=== PATIENT | male | born 1975 | race Caucasian/White ===

== ENCOUNTER 2018-11-21 13:46 | Inpatient (IN) | payer OTHER, MEDICAID, SELFPAY ==
[2018-11-21 13:49] VITALS: BP 133/90; PULSE 75; RESP 14; TEMP 36.4; O2SAT 95; BMI 30.4
[2018-11-21 13:53] VITALS: BP 133/90; PULSE 80; RESP 17; O2SAT 96
--- NOTE | 2018-11-21 14:00 | MRI_ITS ---
STUDY: MRI LUMBAR SPINE WITHOUT CONTRAST REASON FOR EXAM: Male, 43 years old. Falls. Meniscus deep tendon reflexes. TECHNIQUE: Standardized fat and water weighted pulse sequences were obtained in the sagittal and axial planes. COMPARISON: None FINDINGS: Limited evaluation of the retroperitoneum and abdominal contents reveals no acute process. Normal appearance of the psoas and paraspinous muscles, upper medial pelvis and sacrum. No spinal canal stenosis. Normal features of the conus medullaris and cauda equina and epidural space. No significant scoliosis. Straightening of the expected lumbar lordosis. Next a normal vertebral body height and alignment. Normal disc intervals between L1 and S1. Mild disc degenerative changes at T11-T12, T12-L1 without associated stenosis. No significant facet arthropathy. MRI/Spine Lumbar (Routine) IMPRESSION: There is no significant lumbar spondylosis. No evidence of stenosis or nerve root impingement. Mild low thoracic disc degenerative changes without stenosis. Electronically Signed: Vish Oconnell MD at 17:28 EST Tel , Service support ,
--- NOTE | 2018-11-21 14:00 | MRI_ITS ---
STUDY: MRI THORACIC SPINE WITHOUT CONTRAST REASON FOR EXAM: Male, 43 years old. Diminished reflex bilateral extremities, weakness, muscle aches. TECHNIQUE: Multisequence multiplanar MRI of the thoracic spine was performed without IV contrast. COMPARISON: MRI lumbar spine same date. FINDINGS: No significant spondylosis is apparent in the cervical spine, limited evaluation. Mild thoracic scoliosis. There is a mild kyphosis of the midthoracic spine across the levels of T4-T6, associated with a mild chronic appearing wedge compression fracture of the superior endplate of T5, and associated with very slight superior endplate wedging and a superior endplate Schmorl's node at T6. There is mild reactive edema around the base of the Schmorl's node. Acute fracture is not suspected. There is only a minimal posterior disc bulge between T5 and T6 without associated stenosis. The remaining vertebral bodies are normal in height and all vertebral bodies are normal in alignment. Minimal disc degenerative features without stenosis are present at T4-T5, T5-T6, T11-T12 and T12-L1. The spinal canal is widely patent at all levels. There is no evidence of foraminal stenosis. Contents of thecal sac are normal in the epidural space appears normal. The thoracic spinal cord is normal in signal characteristics and morphology, no myelopathic features. No acute supraclavicular, intrathoracic or upper abdominal process is evident, in limited evaluation. MRI/Spine Thoracic (Routine) IMPRESSION: There is no evidence of myelopathy of the thoracic cord. There is no evidence of foraminal or spinal canal stenosis. Mild thoracic kyphosis is associated with chronic changes of the T5 and T6 vertebral bodies. Description above. There is otherwise only minimal disc degenerative disease as described above. Electronically Signed: Vish Oconnell MD at 16:52 EST Tel , Service support ,
[2018-11-21 14:43] LABS: International Normalized Ratio 0.9; Partial Thromboplast Time 28.4 Seconds (24.1-36.2); Prothrombin Time (Protime)PT. 12.2 SECONDS (11.7-14.9)
[2018-11-21 14:44] LABS: Absolute Lymphocyte Count 4.02 X10^3/ul (0.83-4.51); Absolute Neutrophil Count 6.8 X10^3/uL (2.0-7.7); Basophil# 0.02 X10^3/uL; Basophil% 0.2 % (0-1); Eosinophils% 1.7 % (0-5); Hematocrit 44.4 % (40-54); Lymphocyte # 4.02 X10^3/ul (4.0); Mean Corpuscular Volume 80.6 fL (80-94); Mean Platelet Vol. 9.9 fl (6.2-12.0); Monocyte# 0.78 X10^3/uL; Monocyte% 6.6 % (0-10); Neutrophil % 57.3 % (47-70); Platelet Count 280 K/mm3 (150-450); RBC Distribution Width CV 12.7 % (11.6-14.6); Red Blood Count 5.51 M/mm3 (4.6-6.2); White Blood Count 11.8 K/mm3 (4.4-11.0)
[2018-11-21 14:52] LABS: ALB/GLOB Ratio 1.1 RATIO (0.9-2.4); AST(SGOT) 18 U/L (15-37); Alanine Aminotransfer ALT/SGPT 26 U/L (16-61); Albumin, Serum 3.8 g/dL (3.2-5.0); Alkaline Phosphatase 91 U/L (45-117); Anion Gap 9 (5-15); BUN 8 mg/dL (7-18); BUN/Creat Ratio 9.9 RATIO (10-20); Calcium,Total 9.2 mg/dL (8.5-10.1); Chloride 104 mmol/L (98-107); Creatinine, Serum 0.81 mg/dL (0.70-1.30); EST Glomerular Filtration Rate 111 mL/min (>60); Est Glom Filt Rate - Afr Amer 135 mL/min (>60); Estimated Creatinine Clearance 123.92 ml/min; Globulin 3.4 g/dL (2.2-4.2); Glucose 85 mg/dL (74-106); Potassium 2.6 mmol/L (3.5-5.1); Protein, Total 7.2 g/dL (6.4-8.2); Sodium Level 141 mmol/L (136-145)
--- NOTE | 2018-11-21 14:53 | ED.RN ---
critical potassium 2.[address] Travis notified.
[2018-11-21 14:55] LABS: POSITIVE COUNT NO; POSITIVE DIFFERENTIAL NO; POSITIVE MORPHOLOGY NO
[2018-11-21] MEDS: HYDROmorphone 0.5 MG/0.5 ML SYRINGE IV (14:58)
[2018-11-21] MEDS: LORazepam 2 MG/ML Syringe IV ×2 (15:17→19:28)
[2018-11-21] MEDS: Midazolam 2 MG/2 ML Syringe IV (15:17)
--- NOTE | 2018-11-21 15:21 | ED.VISSUMM ---
- ER Visit Summary Date of Service: 11/21/18 Chief Complaint: Weakness lower extremities and falling History of Present Illness: The patient is a 43 M who presents emergency room because of weakness in his legs and unable to support himself. Onset was yesterday. 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 He denies any recent illness. He does have history of back problems. He denies bowel bladder dysfunction. He denies recent vaccination. He denies fever, chills night sweats. He denies any trauma. He denies headaches, ocular, visual auditory symptoms. He denies cardiac or respiratory symptoms. He denies nausea, vomiting or diarrhea. Physical Examination: Vital signs are marked for slight elevation in blood pressure 133/90. He is afebrile. Head is atraumatic normocephalic. Pupils are equal round reactive. Extraocular muscles are intact. TMs are pearly white with landmarks noted. Nares patent with no drainage. Posterior pharynx without erythema or exudate. Uvula is midline. There is no dysphonia or dysphasia. Trachea is midline. There is no stridor with auscultation of the neck. Heart is regular without murmur, gallop or rub. S1 and S2 are normal. Lungs are clear to auscultation with good movement of air bilaterally. Abdomen is soft nontender bowel sounds present normal. Reflexes are plus minus patella and ankle which is markedly diminished compared to upper extremity which is 2+ at the biceps, brachialis and triceps. EHL is weak bilaterally. He has diminished plantar and dorsiflexion. Sensation is normal. DP and PT pulses are palpable. Affect is normal. Patient does report mild claustrophobia and he was medicated with Versed and Ativan prior to MRI. Test Results: White count slight level 11.8. Basic minimal panel is marked for potassium of 2.6. Hepatic profile is normal. MRI of the back to assess for transverse myelitis was obtained. Differential also includes Franca Banks? and hypokalemia causing paralysis/weakness. Emergency Department Course and Treatment: IV was established anti-anxiolytic for MRI and medication for pain. Need to evaluate for ascending paralysis, Franca [place], familial hypokalemia, transverse myelitis. Treatment Plan: If MRI is negative may need LP to assess for Cassi [place] and neuro consult. Disposition: Pending results of MRI Impression: Lower extremity weakness with diminished reflexes evaluate for transverse myelitis versus Franca [place]? versus paralysis/weakness secondary to hypokalemia This note was generated with [employer] dictation software. It may contain incorrect words, spelling, and punctuation that were not noted in review of the chart prior to signing ED Disposition - Plan for ED Patient: Chief Complaint: Weakness Referrals: Farrah Elder, FURNACE MASON-C [Primary Care Provider] -
--- NOTE | 2018-11-21 15:25 | ED.DCSUM_ITS ---
- ER Visit Summary Date of Service: 11/21/18 Chief Complaint: Weakness lower extremities and falling History of Present Illness: The patient is a 43 M who presents emergency room because of weakness in his legs and unable to support himself. Onset was yesterday. 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 He denies any recent illness. He does have history of back problems. He denies bowel bladder dysfunction. He denies recent vaccination. He denies fever, chills night sweats. He denies any trauma. He denies headaches, ocular, visual auditory symptoms. He denies cardiac or respiratory symptoms. He denies nausea, vomiting or diarrhea. Physical Examination: Vital signs are marked for slight elevation in blood pressure 133/90. He is afebrile. Head is atraumatic normocephalic. Pupils are equal round reactive. Extraocular muscles are intact. TMs are pearly white with landmarks noted. Nares patent with no drainage. Posterior pharynx without erythema or exudate. Uvula is midline. There is no dysphonia or dysphasia. Trachea is midline. There is no stridor with auscultation of the neck. Heart is regular without murmur, gallop or rub. S1 and S2 are normal. Lungs are clear to auscultation with good movement of air bilaterally. Abdomen is soft nontender bowel sounds present normal. Reflexes are plus minus patella and ankle which is markedly diminished compared to upper extremity which is 2+ at the biceps, brachialis and triceps. EHL is weak bilaterally. He has diminished plantar and dorsiflexion. Sensation is normal. DP and PT pulses are palpable. Affect is normal. Patient does report mild claustrophobia and he was medicated with Versed and Ativan prior to MRI. Test Results: White count slight level 11.8. Basic minimal panel is marked for potassium of 2.6. Hepatic profile is normal. MRI of the back to assess for transverse myelitis was obtained. Differential also includes Franca [place]? and hypokalemia causing paralysis/weakness. Emergency Department Course and Treatment: IV was established anti-anxiolytic for MRI and medication for pain. Need to evaluate for ascending paralysis, Franca [place], familial hypokalemia, transverse myelitis. Treatment Plan: If MRI is negative may need LP to assess for Cassi [place] and neuro consult. Disposition: Pending results of MRI Impression: Lower extremity weakness with diminished reflexes evaluate for transverse myelitis versus Franca [place]? versus paralysis/weakness secondary to hypokalemia This note was generated with [employer] dictation software. It may contain incorrect words, spelling, and punctuation that were not noted in review of the chart prior to signing ED Disposition - Plan for ED Patient: Chief Complaint: Weakness Referrals: Farrah Elder, YOUTH DIRECTOR-C [Primary Care Provider] -
[2018-11-21 16:32] VITALS: BP 134/84; PULSE 88; RESP 16; O2SAT 95
[2018-11-21 18:11] VITALS: PULSE 87; RESP 16; O2SAT 98
--- NOTE | 2018-11-21 19:09 | MRI_ITS ---
STUDY: MRI BRAIN WITH AND WITHOUT CONTRAST REASON FOR EXAM: Male, 43 years old. Extremity weakness and muscle aches. TECHNIQUE: Standardized multiplanar fat and water weighted pulse sequences were obtained. 11 ml of Gadavist contrast material was administered intravenously for the contrast portion of the examination. COMPARISON: Prior comparison studies are not available for review at this time. FINDINGS: Normal size of the ventricles and extra-axial spaces for the patient's age. There are tiny foci of abnormal T2 hyperintensity scattered throughout the white matter of the frontal lobes primarily. These measure between 1 and 3 mm in size. They are more numerous on the left from the right. There is no evidence for recent intracranial ischemia or other cause of cytotoxic edema on diffusion weighted imaging (DWI). There are several areas of artifactual signal in the region of the violet and basal ganglia on the diffusion-weighted images. Normal T2* images of the brain without demonstrated susceptibility artifact. There is no demonstrated hemosiderin stain. Normal bilateral basal ganglia. Normal thalami. There is no extra-axial fluid accumulation. Normal flow voids within the major intracranial circulation suggesting patency by spin echo criteria. Normal venous enhancement. There is no enhancing intra-axial or extra-axial abnormality. Normal sella turcica, pituitary gland, infundibular stalk, optic chiasm and hypothalamus. Normal tectal plate and pineal gland. Normal midbrain, violet and medulla. Normal cerebellum. Normal basal cisterns. Normal bilateral temporal bones. Normal bilateral internal auditory canals. No demonstrated orbital abnormality, within the constraints of a routine brain study. Normal visualized paranasal sinuses. Normal calvarium and skull base. Normal visualized soft tissue structures. Normal visualized upper cervical spine. MRI/Brain W/WO Contrast IMPRESSION: 1. Nonspecific foci of abnormal signal within the white matter of bilateral frontal lobes, left greater than right. These are nonspecific in their appearance. Differential considerations include sequela of microvascular disease, sequela of previous infection or other vasculopathy. 2. No MR evidence for acute infarct. Electronically Signed: Nikia Butcher MD at 22:36 EST , Service support ,
--- NOTE | 2018-11-21 19:09 | MRI_ITS ---
STUDY: MRI CERVICAL SPINE WITH AND WITHOUT CONTRAST REASON FOR EXAM: Male, 43 years old. Upper and lower extremity weakness and muscle aches. TECHNIQUE: Standardized fat and water weighted pulse sequences were obtained in the sagittal and axial following I.V. administration of 11 ml of Gadavist contrast material. Multiple images are limited by patient motion. COMPARISON: Prior comparison studies are not available for review at this time. FINDINGS: Normal foramen magnum and brainstem-cervical cord junction. Normal craniovertebral junction. Normal anterior atlantoaxial articulation. Normal odontoid process. There is straightening of the normal cervical lordosis. Normal vertebral bodies and posterior osseous elements. C2-3: Normal endplates. Normal disc height, signal and morphology. Normal central canal. There is moderate narrowing of the left neural foramen without evidence of nerve impingement. The right neural foramen is widely patent. There is uncovertebral and facet joint arthropathy. C3-4: Normal endplates. Normal disc height, signal and morphology. Normal central canal and intervertebral neural foramina. C4-5: Normal endplates. Normal disc height, signal and morphology. Normal central canal. There is narrowing of bilateral intervertebral neural foramina secondary to uncovertebral facet joint arthropathy.. C5-6: Normal endplates. Normal disc height, signal and morphology. Normal central canal. There appears to be moderate narrowing of bilateral intervertebral neural foramina primarily due to uncovertebral and facet joint arthropathy.. C6-7: There is a disc bulge and osteophyte complex. The neural foramina are narrowed. There is mild central acquired canal stenosis. C7-T1: Normal endplates. Normal disc height, signal and morphology. Normal central canal and intervertebral neural foramina. There is limited visualization of the cervical cord because of the extensive motion artifact. There is no evidence for abnormal enhancement on the sagittal images after intravenous administration of contrast. The axial enhanced images are nondiagnostic. There is no obvious abnormality identified within the cervical spinal cord. Normal visualized soft tissue structures. MRI/Spine Cervical W/WO Contrast IMPRESSION: 1. Technically limited MRI due to patient motion with what appears to be in general mild multilevel degenerative disc disease and degenerative arthropathy of the cervical spine, as described. 2. There is limited visualization of the spinal cord though no obvious masses are identified. Electronically Signed: Nikia Butcher MD at 22:54 EST , Service support ,
[2018-11-21] MEDS: Midazolam 2 MG/2 ML Syringe 2.5 MG IV (20:05)
[2018-11-21 20:59] VITALS: RESP 16
[2018-11-21] MEDS: HYDROmorphone 1 MG/ML Syringe IV (22:41)
[2018-11-21 22:42] VITALS: BP 123/87; PULSE 92; RESP 16; O2SAT 93
--- NOTE | 2018-11-21 23:32 | PCM.HP.STD ---
Problem List (1) Generalized weakness Status: Acute History of Present Illness Date of Admission: 11/22/18 Chief Complaint: Generalized weakness The patient is a 43 year old M with a significant history of depression;previous alcohol abuse; Jakub Gelacio's reaction with penicillin; and hypertension who presented with a 3-day history of progressively worsening generalized weakness. Patient reported that the weakness started in her bilateral calves and it has progressed to include his bilateral hands. He reports that he is unable to support himself enough even to stand. 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 Reportedly his helped him out of his truck. At emergency department patient's potassium was 2.6 for which he had replacement. At emergency department Neurology was consulted and patient had a cervical spine MRI; brain MRI; thoracic spine MRI and lumbar spine MRI all of which were unremarkable. Importantly his mother has a history of lupus, MS and hypokalemia. Past Medical History Allergies Penicillins [PCN] Allergy (Verified 11/21/18 13:47) Hives Home Medications: Ambulatory Orders Medication Instructions Recorded Amlodipine Besylate 10 mg PO DAILY 11/21/18 Duloxetine Hcl [Cymbalta] 60 mg PO DAILY 11/21/18 Naltrexone Microspheres [Vivitrol] 380 mg IM QMONTH 11/21/18 Propranolol HCl 10 mg PO DAILY 11/21/18 Ranitidine [Zantac] 150 mg PO DAILY 11/21/18 busPIRone [Buspar] 15 mg PO TID PRN 11/21/18 hydrOXYzine pamoate capsule 25 mg PO QHS PRN PRN 11/21/18 [Vistaril pamoate capsule] Albuterol Inhaler [Ventolin Hfa] 2 INHALATION PRN PRN 11/22/18 Clonidine HCl [Catapres] 0.2 mg PO DAILY PRN 11/22/18 Surgical History: appendectomy, tonsillectomy Lives: Spouse/ Significant Other Smoking Status: Current every day smoker Tobacco Use: Cigarettes Alcohol: Sober - *Family History Maternal History Items: - - His mother has a history of lupus, multiple sclerosis, hypokalemia and anxiety. Paternal History Items: - - His father has a history of aortic aneurysm. Review of Systems Constitutional: Reports: Weakness HEENT: Denies: Head Aches, Sinus Congestion, Sinus Drainage Cardiovascular: Denies: Chest Pain, Palpitations Respiratory: Denies: Cough, Shortness of breath at rest, Sputum production Gastrointestinal: Denies: Abdominal Pain, Nausea, Vomiting Genitourinary: Denies: Dysuria Musculoskeletal: Reports: Muscle pain. Denies: Joint Pain, Joint Tenderness Skin: Denies: Rash, Wounds Neurological: Denies: Numbness, Tingling, Focal weakness Psychiatric: Denies: Anxiety, Depression, Homicidal Ideations, Suicidal Ideations Hematologic/ Lymphatic: Denies: Easy Bruising, Easy Bleeding VTE Information - Inpt Only VTE Present on Admission: No VTE Mechan Device Prophylaxis: None VTE Pharm Prophylaxis ordered?: Yes Patient Problems: Active and Suspected Problems Generalized weakness (Acute) - Physical Exam General: Alert, Oriented x3, Cooperative HEENT: Atraumatic, PERRLA, EOMI, Normocephalic Neck: Supple, No JVD, Negative Carotid Bruits Lungs: Clear to auscultation, Normal air movement Cardiovascular: Regular rate, No murmurs Abdomen: Bowel Sounds Present, Soft, Non Tender Extremities: No edema, Capillary Refill Less than 3 Seconds Skin: No rashes, No breakdown Musculoskeletal: No Muscle Wasting Neurological: - - Right knee areflexia. Left knee reflex 2 out of 4. Patient unable to raise his right leg but can move it. Patient can move his left leg up slightly. Strength in bilateral lower extremities 1 out of 5. Patient can raise bilateral arms fully. Strength in bilateral arms 1 out of 5. Psych/Mental Status: Normal Affect, Appropriate Vital Signs Temp Pulse Resp BP Pulse Ox 97.5 F L 92 16 123/87 H 93 11/21/18 13:49 11/21/18 22:42 11/21/18 22:42 11/21/18 22:42 11/21/18 22:42 Oxygen Delivery Method Room Air Weight: 96.2 kg Body Mass Index (BMI) 30.4 Laboratory Tests Past 24 Hrs 11/21/18 11/21/18 11/21/18 14:15 14:15 14:15 WBC 11.8 H RBC 5.51 Hgb 16.0 Hct 44.4 MCV 80.6 MCH 29.0 MCHC 36.0 RDW 12.7 RDW Differential 37.0 Plt Count 280 MPV 9.9 Immature Gran % (Auto) 0.200 Neut % (Auto) 57.3 Lymph % (Auto) 34.0 [place] % (Auto) 6.6 Eos % (Auto) 1.7 Baso % (Auto) 0.2 Absolute Neuts (auto) 6.8 Absolute Lymphs (auto) 4.02 Total Counted Not Reportable PT 12.2 INR 0.9 APTT 28.4 Sodium 141 Potassium 2.6 L* Chloride 104 Carbon Dioxide 28.0 Anion Gap 9 BUN 8 Creatinine 0.81 Estim Creat Clear Calc 123.92 Est GFR (MDRD) Af Amer 135 Est GFR (MDRD) Non-Af 111 BUN/Creatinine Ratio 9.9 L Glucose 85 Calcium 9.2 Total Bilirubin 0.40 AST 18 ALT 26 Alkaline Phosphatase 91 Total Protein 7.2 Albumin 3.8 Globulin 3.4 Albumin/Globulin Ratio 1.1 Assessment/Plan All Active Problems Generalized weakness (Acute) 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 Generalized weakness Different diagnosis include hypokalemic periodic paralysis; [place]?; or other Likely to be hypothyroidism due to rapidity of symptoms. MRI was unremarkable for transverse myelitis. MRI of thoracic spine; MRI of lumbar spine; MRI of cervical spine and brain MRI is not remarkable. Will admit patient to the progressive care unit We will do frequent vital capacity and NIF. PT and OT to work with patient CPK and aldolase ordered. We will place patient on scheduled potassium supplements. Will check urine potassium. PRN oxycodone ordered. Bowel protocol and antiemetics in the setting of other narcotics. Neurology has been consulted to help unravel the etiology of his sudden onset generalized weakness and to optimize management. History of alcohol abuse. Reportedly he has been sober for 4 months. Patient is on Vivitrol which he takes monthly. Last time he took his Vivitrol was October 22, 2018. He is supposed to follow up at the [facility] on November 24 2018. Catapres continued Hypertension At admission his blood pressure was fairly stable. Amlodipine;propranolol and Catapres continued. GERD On Home Zantac. Pepcid ordered while inpatient. Anxiety Buspirone and hydroxyzine continued Depression Cymbalta continued Tobacco abuse Counselled NicoDerm patch was placed at emergency departments; continued. DVT prophylaxis Subcutaneous heparin Code Visit Inpatient E&M: 43126 Init Hosp L3
[2018-11-22] VITALS (13 sets, daily range): BP systolic 115–124; BP diastolic 67–86; PULSE 87–103; RESP 16–20; TEMP 36.5–36.7; O2SAT 93–96; BMI 29.2
[2018-11-22 00:44] LABS: Anion Gap 7 (5-15); BUN 9 mg/dL (7-18); BUN/Creat Ratio 9.9 RATIO (10-20); Calcium,Total 8.2 mg/dL (8.5-10.1); Chloride 105 mmol/L (98-107); Creatinine, Serum 0.91 mg/dL (0.70-1.30); EST Glomerular Filtration Rate 97 mL/min (>60); Est Glom Filt Rate - Afr Amer 118 mL/min (>60); Glucose 156 mg/dL (74-106); Magnesium 1.9 mg/dL (1.6-2.6); Phosphorus 2.8 mg/dL (2.5-4.9); Potassium 3.3 mmol/L (3.5-5.1); Sodium Level 140 mmol/L (136-145)
[2018-11-22 01:01] LABS: CPK Total, Creatine Kinase 159 U/L (39-308)
--- NOTE | 2018-11-22 01:02 | NURSING ---
Pt states he is supposed to be taking EITHER Vistaril to Buspar. Clonidine doses are supposed to be being tapered until he is off of it.
[2018-11-22] MEDS: oxyCODONE 5 MG Tablet PO ×3 (01:33→10:40)
[2018-11-22] MEDS: Acetaminophen 325 MG Tablet 650 MG PO (04:39)
[2018-11-22] MEDS: Heparin Injection (Vial) 5,000 UNIT/ML VIAL 5000 UNIT SC (06:15)
--- NOTE | 2018-11-22 08:30 | NURSING ---
Patient's states that patient would like to go outside. Patient and were made aware that for patient safety and policy, patients are not able to leave the hospital floor. Patient voiced understanding of same, but patient's remained upset. lithopone charger made aware of family concern and she went to speak with patient's . Patient off floor.
[2018-11-22] MEDS: busPIRone 15 MG TABLET PO (09:04)
--- NOTE | 2018-11-22 09:23 | PCM.PN.HOSP ---
Patient Problems: Active and Suspected Problems Generalized weakness (Acute) Subjective: 72 hours ago, the patient had myalgias in UE and LE. 48 hours ago, he fell out of his semi, fell again walking into the gas station. He is unable to get himself up and move his LE. Still with myalgias. Previously, was normal. Anxious. Vitals/I&O's: Vital Signs Temp Pulse Resp BP Pulse Ox 36.5 C L 88 17 124/86 H 94 11/22/18 08:37 11/22/18 08:37 11/22/18 08:37 11/22/18 08:37 11/22/18 08:37 Oxygen Delivery Method Room Air Weight: 92.4 kg Body Mass Index (BMI) 29.2 Intake and Output for Last 24 Hours 11/20/18 11/21/18 11/22/18 23:59 23:59 23:59 Intake Total 120 / 120 Output Total 50 / 50 Balance 70 / 70 General: Alert, No apparent distress HEENT: Atraumatic, PERRLA, EOMI, Normocephalic Oral: Moist Mucosa, No Gingival or Mucosal Lesions/ Ulcerations Neck: No Nodes, Thyroid Normal Size and Texture Lungs: Clear to auscultation, Normal air movement, No rhonchi, No wheeze Cardiovascular: Normal S1, No Ectopic Activity Abdomen: Bowel Sounds Present, Soft, Non Tender, Non-Distended, No Hepato-splenomegaly Extremities: No edema, No Calf Tenderness Skin: No rashes, No breakdown Musculoskeletal: No Tenderness to Palpation of Joints or Extremities, No Muscle Wasting Neurological: Cranial nerves II-XII grossly intact, - - diminished DTRs. MS 4/5 in RUE, 5/5 LUE. 2/5 in bilateral lower extremities. Psych/Mental Status: Appropriate, Anxious Laboratory Results 11/21/18 14:15: WBC 11.8 H, RBC 5.51, Hgb 16.0, Hct 44.4, MCV 80.6, MCH 29.0, MCHC 36.0, RDW 12.7, RDW Differential 37.0, Plt Count 280, MPV 9.9, Immature Gran % (Auto) 0.200, Neut % (Auto) 57.3, Lymph % (Auto) 34.0, [place] % (Auto) 6.6, Eos % (Auto) 1.7, Baso % (Auto) 0.2, Absolute Neuts (auto) 6.8, Absolute Lymphs (auto) 4.02, Total Counted Not Reportable 11/21/18 14:15: PT 12.2, INR 0.9, APTT 28.4 11/21/18 14:15: Sodium 141, Potassium 2.6 L*, Chloride 104, Carbon Dioxide 28.0, Anion Gap 9, BUN 8, Creatinine 0.81, Estim Creat Clear Calc 123.92, Est GFR (MDRD) Af Amer 135, Est GFR (MDRD) Non-Af 111, BUN/Creatinine Ratio 9.9 L, Glucose 85, Calcium 9.2, Total Bilirubin 0.40, AST 18, ALT 26, Alkaline Phosphatase 91, Total Protein 7.2, Albumin 3.8, Globulin 3.4, Albumin/Globulin Ratio 1.1 11/21/18 23:30: Sodium Cancelled, Potassium Cancelled, Chloride Cancelled, Carbon Dioxide Cancelled, Anion Gap Cancelled, BUN Cancelled, Creatinine Cancelled, Estim Creat Clear Calc Cancelled, Est GFR (MDRD) Af Amer Cancelled, Est GFR (MDRD) Non-Af Cancelled, BUN/Creatinine Ratio Cancelled, Glucose Cancelled, Calcium Cancelled, Phosphorus Cancelled, Magnesium Cancelled 11/22/18 00:20: Sodium 140, Potassium 3.3 L, Chloride 105, Carbon Dioxide 28.0, Anion Gap 7, BUN 9, Creatinine 0.91, Estim Creat Clear Calc 110.30, Est GFR (MDRD) Af Amer 118, Est GFR (MDRD) Non-Af 97, BUN/Creatinine Ratio 9.9 L, Glucose 156 H, Calcium 8.2 L, Phosphorus 2.8, Magnesium 1.9 11/22/18 00:20: Total Creatine Kinase 159 11/22/18 03:52: Urine Potassium 24.0 Current Medications Acetaminophen (Tylenol) 650 mg PO Q6H PRN PRN PRN Reason: PAIN Last Admin: 11/22/18 04:39 Dose: 650 mg Albuterol Sulfate (Ventolin Aerosols) 2.5 mg INHALATION Q2H PRN PRN PRN Reason: SOB/WHEEZING Amlodipine Besylate (Norvasc) 10 mg PO DAILY [facility] Buspirone HCl (Buspar) 15 mg PO TID PRN PRN PRN Reason: ANXIETY Last Admin: 11/22/18 09:04 Dose: 15 mg Clonidine (Catapres) 0.2 mg PO DAILY PRN PRN PRN Reason: ANXIETY Duloxetine HCl (Cymbalta) 60 mg PO DAILY [facility] Famotidine (Pepcid) 20 mg PO DAILY [facility] Heparin Sodium (Porcine) (Heparin Na) 5,000 unit SC Q8 [facility] Last Admin: 11/22/18 06:15 Dose: 5,000 unit Hydroxyzine Pamoate (Vistaril Pamoate Capsule) 25 mg PO QHS PRN PRN Reason: ANXIETY Lorazepam (Ativan) 1 mg PO Q6H PRN PRN PRN Reason: ANXIETY Magnesium Hydroxide (Milk Of Magnesia) 30 ml PO DAILY PRN PRN Reason: Constipation Nicotine (Nicoderm Cq (Pbkc)) 21 mg TRANSDERM. DAILY [facility] Nutritional Formula (Lactose Free) (Ensure Enlive) 120 ml PO 4X/DAY [facility] Ondansetron HCl (Zofran) 4 mg IV Q8H PRN PRN PRN Reason: NAUSEA Oxycodone HCl (Oxyir) 5 - 10 mg PO Q4H PRN PRN PRN Reason: SEVERE PAIN (6-10/10) Potassium Chloride ([facility]) [facility] Last Admin: 11/22/18 01:36 Dose: 40 meq Propranolol HCl (Inderal) 10 mg PO DAILY [facility] Senna/Docusate Sodium (Senokot-S, Zehra-Colace) 1 tablet PO BID [facility] Sodium Chloride () 5 - 15 ml IV UD PRN PRN Reason: SALINE FLUSH Medical Necessity - Tobacco Use Smoking Status: Current every day smoker Tobacco Use: Cigarettes Assessment/Plan All Active Problems Generalized weakness (Acute) 1. Progressive weakness concern for AIDP MRI negative for CVA MRI C, T and L spine negative for any acute cord impingement Neurology on consult LP ordered, cannot be done until 11/24 no respiratory distress at this time. CK negative Concern if patient requires more aggressive care, such as plasmapheresis, IVIG 2. Hypokalemia improved, but still low continue replacement. 3. DVT proph: SQ heparin 4. Anxiety situational PRN lorazepam 5. Myalgias increase oxycodone. Code Visit Inpatient E&M: 51151 [facility] Hosp L3
--- NOTE | 2018-11-22 09:30 | NURSING ---
asking when neurology will be in to see patient. charge manager nurse to page Dr. Amezquita. Dr. Amaro was at bedside and updated patient and his on condition and waiting for neurology consult.
--- NOTE | 2018-11-22 09:36 | PN_ITS ---
Patient Problems: Active and Suspected Problems Generalized weakness (Acute) Subjective: 72 hours ago, the patient had myalgias in UE and LE. 48 hours ago, he fell out of his semi, fell again walking into the gas station. He is unable to get himself up and move his LE. Still with myalgias. Previously, was normal. Anxious. Vitals/I&O's: Vital Signs Temp Pulse Resp BP Pulse Ox 36.5 C L 88 17 124/86 H 94 11/22/18 08:37 11/22/18 08:37 11/22/18 08:37 11/22/18 08:37 11/22/18 08:37 Oxygen Delivery Method Room Air Weight: 92.4 kg Body Mass Index (BMI) 29.2 Intake and Output for Last 24 Hours 11/20/18 11/21/18 11/22/18 23:59 23:59 23:59 Intake Total 120 / 120 Output Total 50 / 50 Balance 70 / 70 General: Alert, No apparent distress HEENT: Atraumatic, PERRLA, EOMI, Normocephalic Oral: Moist Mucosa, No Gingival or Mucosal Lesions/ Ulcerations Neck: No Nodes, Thyroid Normal Size and Texture Lungs: Clear to auscultation, Normal air movement, No rhonchi, No wheeze Cardiovascular: Normal S1, No Ectopic Activity Abdomen: Bowel Sounds Present, Soft, Non Tender, Non-Distended, No Hepato- splenomegaly Extremities: No edema, No Calf Tenderness Skin: No rashes, No breakdown Musculoskeletal: No Tenderness to Palpation of Joints or Extremities, No Muscle Wasting Neurological: Cranial nerves II-XII grossly intact, - - diminished DTRs. MS 4/5 in RUE, 5/5 LUE. 2/5 in bilateral lower extremities. Psych/Mental Status: Appropriate, Anxious Laboratory Results 11/21/18 14:15: WBC 11.8 H, RBC 5.51, Hgb 16.0, Hct 44.4, MCV 80.6, MCH 29.0, MCHC 36.0, RDW 12.7, RDW Differential 37.0, Plt Count 280, MPV 9.9, Immature Gran % (Auto) 0.200, Neut % (Auto) 57.3, Lymph % (Auto) 34.0, [place] % (Auto) 6.6, Eos % (Auto) 1.7, Baso % (Auto) 0.2, Absolute Neuts (auto) 6.8, Absolute Lymphs (auto) 4.02, Total Counted Not Reportable 11/21/18 14:15: PT 12.2, INR 0.9, APTT 28.4 11/21/18 14:15: Sodium 141, Potassium 2.6 L*, Chloride 104, Carbon Dioxide 28.0, Anion Gap 9, BUN 8, Creatinine 0.81, Estim Creat Clear Calc 123.92, Est GFR (MDRD) Af Amer 135, Est GFR (MDRD) Non-Af 111, BUN/Creatinine Ratio 9.9 L, Glucose 85, Calcium 9.2, Total Bilirubin 0.40, AST 18, ALT 26, Alkaline Phosphatase 91, Total Protein 7.2, Albumin 3.8, Globulin 3.4, Albumin/Globulin Ratio 1.1 11/21/18 23:30: Sodium Cancelled, Potassium Cancelled, Chloride Cancelled, Carbon Dioxide Cancelled, Anion Gap Cancelled, BUN Cancelled, Creatinine Cancelled, Estim Creat Clear Calc Cancelled, Est GFR (MDRD) Af Amer Cancelled, Est GFR (MDRD) Non-Af Cancelled, BUN/Creatinine Ratio Cancelled, Glucose Cancelled, Calcium Cancelled, Phosphorus Cancelled, Magnesium Cancelled 11/22/18 00:20: Sodium 140, Potassium 3.3 L, Chloride 105, Carbon Dioxide 28.0, Anion Gap 7, BUN 9, Creatinine 0.91, Estim Creat Clear Calc 110.30, Est GFR (MD RD) Af Amer 118, Est GFR (MDRD) Non-Af 97, BUN/Creatinine Ratio 9.9 L, Glucose 156 H, Calcium 8.2 L, Phosphorus 2.8, Magnesium 1.9 11/22/18 00:20: Total Creatine Kinase 159 11/22/18 03:52: Urine Potassium 24.0 Current Medications Acetaminophen (Tylenol) 650 mg PO Q6H PRN PRN PRN Reason: PAIN Last Admin: 11/22/18 04:39 Dose: 650 mg Albuterol Sulfate (Ventolin Aerosols) 2.5 mg INHALATION Q2H PRN PRN PRN Reason: SOB/WHEEZING Amlodipine Besylate (Norvasc) 10 mg PO DAILY [facility] Buspirone HCl (Buspar) 15 mg PO TID PRN PRN PRN Reason: ANXIETY Last Admin: 11/22/18 09:04 Dose: 15 mg Clonidine (Catapres) 0.2 mg PO DAILY PRN PRN PRN Reason: ANXIETY Duloxetine HCl (Cymbalta) 60 mg PO DAILY [facility] Famotidine (Pepcid) 20 mg PO DAILY [facility] Heparin Sodium (Porcine) (Heparin Na) 5,000 unit SC Q8 [facility] Last Admin: 11/22/18 06:15 Dose: 5,000 unit Hydroxyzine Pamoate (Vistaril Pamoate Capsule) 25 mg PO QHS PRN PRN Reason: ANXIETY Lorazepam (Ativan) 1 mg PO Q6H PRN PRN PRN Reason: ANXIETY Magnesium Hydroxide (Milk Of Magnesia) 30 ml PO DAILY PRN PRN Reason: Constipation Nicotine (Nicoderm Cq (Pbkc)) 21 mg TRANSDERM. DAILY [facility] Nutritional Formula (Lactose Free) (Ensure Enlive) 120 ml PO 4X/DAY [facility] Ondansetron HCl (Zofran) 4 mg IV Q8H PRN PRN PRN Reason: NAUSEA Oxycodone HCl (Oxyir) 5 - 10 mg PO Q4H PRN PRN PRN Reason: SEVERE PAIN (6-10/10) Potassium [facility] Last Admin: 11/22/18 01:36 Dose: 40 meq Propranolol HCl (Inderal) 10 mg PO DAILY [facility] Senna/Docusate Sodium (Senokot-S, Zehra-Colace) 1 tablet PO BID [facility] Sodium Chloride () 5 - 15 ml IV UD PRN PRN Reason: SALINE FLUSH Medical Necessity - Tobacco Use Smoking Status: Current every day smoker Tobacco Use: Cigarettes Assessment/Plan All Active Problems Generalized weakness (Acute) 1. Progressive weakness * concern for AIDP * MRI negative for CVA * MRI C, T and L spine negative for any acute cord impingement * Neurology on consult * LP ordered, cannot be done until 11/24 * no respiratory distress at this time. * CK negative * Concern if patient requires more aggressive care, such as plasmapheresis, IVIG 2. Hypokalemia * improved, but still low * continue replacement. 3. DVT proph: SQ heparin 4. Anxiety * situational * PRN lorazepam 5. Myalgias * increase oxycodone. Code Visit Inpatient E&M: 85765 [facility] Hosp L3
[2018-11-22 10:36] LABS: Anion Gap 8 (5-15); BUN 8 mg/dL (7-18); BUN/Creat Ratio 9.1 RATIO (10-20); Calcium,Total 8.2 mg/dL (8.5-10.1); Chloride 106 mmol/L (98-107); Creatinine, Serum 0.88 mg/dL (0.70-1.30); EST Glomerular Filtration Rate 101 mL/min (>60); Est Glom Filt Rate - Afr Amer 122 mL/min (>60); Estimated Creatinine Clearance 114.06 ml/min; Glucose 150 mg/dL (74-106); Potassium 3.8 mmol/L (3.5-5.1); Sodium Level 140 mmol/L (136-145)
[2018-11-22] MEDS: DULoxetine Hcl 60 MG Capsule PO (10:38)
[2018-11-22] MEDS: Propranolol 10 MG Tablet PO (10:39)
[2018-11-22] MEDS: Famotidine 20 MG Tablet PO (10:40)
[2018-11-22] MEDS: amLODIPine 10 MG Tablet PO (10:40)
[2018-11-22] MEDS: Senna/Docusate Sodium 1 Tablet PO ×2 (10:40)
--- NOTE | 2018-11-22 11:02 | CASEMGMT ---
According to [employer] website, the following are in-network tertiary facilities: [facility], [facility], [facility], [facility], [facility], [facility], [facility], and . [facility] CM
--- NOTE | 2018-11-22 11:12 | PCM.DC.SUM ---
Discharge Date and Diagnosis - Problem List Patient Problems: Active and Suspected Problems Generalized weakness (Acute) Date of Admission: 11/22/18 Date of Discharge: 11/22/18 - Primary Discharge Diagnosis Active and Suspected Problems Generalized weakness (Acute) Hospital Course and Treatment Imaging Results: 11/22/18 08:40 Fluoro Guided Lumbar Puncture [RAD] Urgent Clinical Impression(s) from Imaging Studies Lumbar Spine MRI 11/21/18 14:00 IMPRESSION: There is no significant lumbar spondylosis. No evidence of stenosis or nerve root impingement. Mild low thoracic disc degenerative changes without stenosis. Electronically Signed: Vish Oconnell MD at 17:28 EST Tel , Service support , Thoracic Spine MRI 11/21/18 14:00 IMPRESSION: There is no evidence of myelopathy of the thoracic cord. There is no evidence of foraminal or spinal canal stenosis. Mild thoracic kyphosis is associated with chronic changes of the T5 and T6 vertebral bodies. Description above. There is otherwise only minimal disc degenerative disease as described above. Electronically Signed: Vish Oconnell MD at 16:52 EST Tel , Service support , Brain MRI 11/21/18 19:09 IMPRESSION: 1. Nonspecific foci of abnormal signal within the white matter of bilateral frontal lobes, left greater than right. These are nonspecific in their appearance. Differential considerations include sequela of microvascular disease, sequela of previous infection or other vasculopathy. 2. No MR evidence for acute infarct. Electronically Signed: Nikia Butcher MD at 22:36 EST , Service support , Cervical Spine MRI 11/21/18 19:09 IMPRESSION: 1. Technically limited MRI due to patient motion with what appears to be in general mild multilevel degenerative disc disease and degenerative arthropathy of the cervical spine, as described. 2. There is limited visualization of the spinal cord though no obvious masses are identified. Electronically Signed: Nikia Butcher MD at 22:54 EST , Service support , Operations: None Procedures: None Summary of Care Provided: The patient is a 43 year old M presents with progressive weakness. Symptoms began roughly 72 hours prior to admission where patient was having some myalgias. The following day, patient was weak and fell out of his truck and then fell going into a gas station. Patient required much assistance standing up. Patient presented to the emergency room on the with the symptoms. He underwent an MRI of the brain, cervical, thoracic and lumbar spines. No acute process was identified. On exam patient about strength was much impaired in the lower extremities as well as somewhat in the upper extremities. Patient had diminished reflexes as well. Dr. Asad Upton, of neurology was initially contacted through the emergency room and did not feel that it was Vivek Banks? but Dr. Amezquita felt that it may be in recommend patient have a lumbar puncture and be transferred as a lumbar puncture could not be performed at our facility until the . I spoke with the patient and his and they initially requested [facility]. [facility] declined but they also did request [facility] in [place] and that has patient has been accepted at [place]. Patient will be, however, sent to the emergency room so that the LP could be expedited. Patient has been except in the emergency room by Dr. Duran. Patient currently has no respiratory distress at this time and is talking in full sentences. [] Patient Problems: Active and Suspected Problems Generalized weakness (Acute) - Physical Exam Vital Signs Temp Pulse Resp BP Pulse Ox 36.5 C L 88 17 124/86 H 94 11/22/18 08:37 11/22/18 08:37 11/22/18 08:37 11/22/18 08:37 11/22/18 08:37 Oxygen Delivery Method Room Air Weight: 92.4 kg Body Mass Index (BMI) 29.2 Intake and Output for Last 24 Hours 11/20/18 11/21/18 11/22/18 23:59 23:59 23:59 Intake Total 120 / 120 Output Total 50 / 50 Balance 70 / 70 Laboratory Tests Past 24 Hrs 11/21/18 11/21/18 11/21/18 14:15 14:15 14:15 WBC 11.8 H RBC 5.51 Hgb 16.0 Hct 44.4 MCV 80.6 MCH 29.0 MCHC 36.0 RDW 12.7 RDW Differential 37.0 Plt Count 280 MPV 9.9 Immature Gran % (Auto) 0.200 Neut % (Auto) 57.3 Lymph % (Auto) 34.0 [place] % (Auto) 6.6 Eos % (Auto) 1.7 Baso % (Auto) 0.2 Absolute Neuts (auto) 6.8 Absolute Lymphs (auto) 4.02 Total Counted Not Reportable PT 12.2 INR 0.9 APTT 28.4 Sodium 141 Potassium 2.6 L* Chloride 104 Carbon Dioxide 28.0 Anion Gap 9 BUN 8 Creatinine 0.81 Estim Creat Clear Calc 123.92 Est GFR (MDRD) Af Amer 135 Est GFR (MDRD) Non-Af 111 BUN/Creatinine Ratio 9.9 L Glucose 85 Calcium 9.2 Phosphorus Magnesium Total Bilirubin 0.40 AST 18 ALT 26 Alkaline Phosphatase 91 Total Creatine Kinase Total Protein 7.2 Albumin 3.8 Globulin 3.4 Albumin/Globulin Ratio 1.1 Aldolase Urine Potassium CSF Albumin Serum IgG CSF IgG/Albumin CSF Albumin Index CSF IgG Index CSF IgG Local Synthesis Culture Method 11/21/18 11/22/18 11/22/18 23:30 00:20 00:20 WBC RBC Hgb Hct MCV MCH MCHC RDW RDW Differential Plt Count MPV Immature Gran % (Auto) Neut % (Auto) Lymph % (Auto) [place] % (Auto) Eos % (Auto) Baso % (Auto) Absolute Neuts (auto) Absolute Lymphs (auto) Total Counted PT INR APTT Sodium Cancelled 140 Potassium Cancelled 3.3 L Chloride Cancelled 105 Carbon Dioxide Cancelled 28.0 Anion Gap Cancelled 7 BUN Cancelled 9 Creatinine Cancelled 0.91 Estim Creat Clear Calc Cancelled 110.30 Est GFR (MDRD) Af Amer Cancelled 118 Est GFR (MDRD) Non-Af Cancelled 97 BUN/Creatinine Ratio Cancelled 9.9 L Glucose Cancelled 156 H Calcium Cancelled 8.2 L Phosphorus Cancelled 2.8 Magnesium Cancelled 1.9 Total Bilirubin AST ALT Alkaline Phosphatase Total Creatine Kinase 159 Total Protein Albumin Globulin Albumin/Globulin Ratio Aldolase Urine Potassium CSF Albumin Serum IgG CSF IgG/Albumin CSF Albumin Index CSF IgG Index CSF IgG Local Synthesis Culture Method 11/22/18 11/22/18 11/22/18 03:52 10:00 10:00 WBC RBC Hgb Hct MCV MCH MCHC RDW RDW Differential Plt Count MPV Immature Gran % (Auto) Neut % (Auto) Lymph % (Auto) [place] % (Auto) Eos % (Auto) Baso % (Auto) Absolute Neuts (auto) Absolute Lymphs (auto) Total Counted PT INR APTT Sodium 140 Potassium 3.8 Chloride 106 Carbon Dioxide 26.0 Anion Gap 8 BUN 8 Creatinine 0.88 Estim Creat Clear Calc 114.06 Est GFR (MDRD) Af Amer 122 Est GFR (MDRD) Non-Af 101 BUN/Creatinine Ratio 9.1 L Glucose 150 H Calcium 8.2 L Phosphorus Magnesium Total Bilirubin AST ALT Alkaline Phosphatase Total Creatine Kinase Total Protein Albumin Globulin Albumin/Globulin Ratio Aldolase Pending Urine Potassium 24.0 CSF Albumin Serum IgG CSF IgG/Albumin CSF Albumin Index CSF IgG Index CSF IgG Local Synthesis Culture Method 11/22/18 10:00 WBC RBC Hgb Hct MCV MCH MCHC RDW RDW Differential Plt Count MPV Immature Gran % (Auto) Neut % (Auto) Lymph % (Auto) [place] % (Auto) Eos % (Auto) Baso % (Auto) Absolute Neuts (auto) Absolute Lymphs (auto) Total Counted PT INR APTT Sodium Potassium Chloride Carbon Dioxide Anion Gap BUN Creatinine Estim Creat Clear Calc Est GFR (MDRD) Af Amer Est GFR (MDRD) Non-Af BUN/Creatinine Ratio Glucose Calcium Phosphorus Magnesium Total Bilirubin AST ALT Alkaline Phosphatase Total Creatine Kinase Total Protein Albumin Pending Globulin Albumin/Globulin Ratio Aldolase Urine Potassium CSF Albumin Pending Serum IgG Pending CSF IgG/Albumin Pending CSF Albumin Index Pending CSF IgG Index Pending CSF IgG Local Synthesis Pending Culture Method Pending Discharge Diet: No Restrictions Discharge Activity: - - Activity Per [facility] Home Medications: Medications to take at Discharge Amlodipine Besylate 10 mg PO DAILY 11/21/18 Duloxetine Hcl [Cymbalta] 60 mg PO DAILY 11/21/18 Naltrexone Microspheres [Vivitrol] 380 mg IM QMONTH 11/21/18 Propranolol HCl 10 mg PO DAILY 11/21/18 Ranitidine [Zantac] 150 mg PO DAILY 11/21/18 busPIRone [Buspar] 15 mg PO TID PRN 11/21/18 hydrOXYzine pamoate capsule [Vistaril pamoate capsule] 25 mg PO QHS PRN PRN 11/21/18 Albuterol Inhaler [Ventolin Hfa] 2 INHALATION PRN PRN 11/22/18 Clonidine HCl [Catapres] 0.2 mg PO DAILY PRN 11/22/18 Primary Care Physician: Farrah Elder NP-C [Primary Care Provider] - Within 1 Week Disposition: Acute care Hospital Minutes spent on discharge:: 60 Patient Condition:: Stable Medical Necessity - Tobacco Use Smoking Status: Current every day smoker Tobacco Use: Cigarettes Meaningful Use Info Meaningful Use Diagnoses (Choose all that apply): None applicable Code Visit Inpatient E&M: 67700 Disch Hosp
--- NOTE | 2018-11-22 11:15 | DS.PCM_ITS ---
Discharge Date and Diagnosis - Problem List Patient Problems: Active and Suspected Problems Generalized weakness (Acute) Date of Admission: 11/22/18 Date of Discharge: 11/22/18 - Primary Discharge Diagnosis Active and Suspected Problems Generalized weakness (Acute) Hospital Course and Treatment Imaging Results: 11/22/18 08:40 Fluoro Guided Lumbar Puncture [RAD] Urgent Clinical Impression(s) from Imaging Studies Lumbar Spine MRI 11/21/18 14:00 IMPRESSION: There is no significant lumbar spondylosis. No evidence of stenosis or nerve root impingement. Mild low thoracic disc degenerative changes without stenosis. Electronically Signed: Vish Oconnell MD at 17:28 EST Tel , Service support , Thoracic Spine MRI 11/21/18 14:00 IMPRESSION: There is no evidence of myelopathy of the thoracic cord. There is no evidence of foraminal or spinal canal stenosis. Mild thoracic kyphosis is associated with chronic changes of the T5 and T6 vertebral bodies. Description above. There is otherwise only minimal disc degenerative disease as described above. Electronically Signed: Vish Oconnell MD at 16:52 EST Tel , Service support , Brain MRI 11/21/18 19:09 IMPRESSION: 1. Nonspecific foci of abnormal signal within the white matter of bilateral frontal lobes, left greater than right. These are nonspecific in their appearance. Differential considerations include sequela of microvascular disease, sequela of previous infection or other vasculopathy. 2. No MR evidence for acute infarct. Electronically Signed: Nikia Butcher MD at 22:36 EST , Service support , Cervical Spine MRI 11/21/18 19:09 IMPRESSION: 1. Technically limited MRI due to patient motion with what appears to be in general mild multilevel degenerative disc disease and degenerative arthropathy of the cervical spine, as described. 2. There is limited visualization of the spinal cord though no obvious masses are identified. Electronically Signed: Nikia Butcher MD at 22:54 EST , Service support , Operations: None Procedures: None Summary of Care Provided: The patient is a 43 year old M presents with progressive weakness. Symptoms began roughly 72 hours prior to admission where patient was having some myalgias. The following day, patient was weak and fell out of his truck and then fell going into a gas station. Patient required much assistance standing up. Patient presented to the emergency room on the with the symptoms. He underwent an MRI of the brain, cervical, thoracic and lumbar spines. No acute process was identified. On exam patient about strength was much impaired in the lower extremities as well as somewhat in the upper extremities. Patient had diminished reflexes as well. Dr. Asad Upton, of neurology was initially contacted through the emergency room and did not feel that it was Vivek Banks? but Dr. Amezquita felt that it may be in recommend patient have a lumbar puncture and be transferred as a lumbar puncture could not be performed at our facility until the . I spoke with the patient and his and they initially requested [facility]. Ba declined but they also did [facility] [place] and that has patient has been accepted at [facility]. Patient will be, however, sent to the emergency room so that the LP could be expedited. Patient has been except in the emergency room by Dr. Duran. Patient currently has no respiratory distress at this time and is talking in full sentences. [] Patient Problems: Active and Suspected Problems Generalized weakness (Acute) - Physical Exam Vital Signs Temp Pulse Resp BP Pulse Ox 36.5 C L 88 17 124/86 H 94 11/22/18 08:37 11/22/18 08:37 11/22/18 08:37 11/22/18 08:37 11/22/18 08:37 Oxygen Delivery Method Room Air Weight: 92.4 kg Body Mass Index (BMI) 29.2 Intake and Output for Last 24 Hours 11/20/18 11/21/18 11/22/18 23:59 23:59 23:59 Intake Total 120 / 120 Output Total 50 / 50 Balance 70 / 70 Laboratory Tests Past 24 Hrs 11/21/18 11/21/18 11/21/18 14:15 14:15 14:15 WBC 11.8 H RBC 5.51 Hgb 16.0 Hct 44.4 MCV 80.6 MCH 29.0 MCHC 36.0 RDW 12.7 RDW Differential 37.0 Plt Count 280 MPV 9.9 Immature Gran % (Auto) 0.200 Neut % (Auto) 57.3 Lymph % (Auto) 34.0 Pine % (Auto) 6.6 Eos % (Auto) 1.7 Baso % (Auto) 0.2 Absolute Neuts (auto) 6.8 Absolute Lymphs (auto) 4.02 Total Counted Not Reportable PT 12.2 INR 0.9 APTT 28.4 Sodium 141 Potassium 2.6 L* Chloride 104 Carbon Dioxide 28.0 Anion Gap 9 BUN 8 Creatinine 0.81 Estim Creat Clear Calc 123.92 Est GFR (MDRD) Af Amer 135 Est GFR (MDRD) Non-Af 111 BUN/Creatinine Ratio 9.9 L Glucose 85 Calcium 9.2 Phosphorus Magnesium Total Bilirubin 0.40 AST 18 ALT 26 Alkaline Phosphatase 91 Total Creatine Kinase Total Protein 7.2 Albumin 3.8 Globulin 3.4 Albumin/Globulin Ratio 1.1 Aldolase Urine Potassium CSF Albumin Serum IgG CSF IgG/Albumin CSF Albumin Index CSF IgG Index CSF IgG Local Synthesis Culture Method 11/21/18 11/22/18 11/22/18 23:30 00:20 00:20 WBC RBC Hgb Hct MCV MCH MCHC RDW RDW Differential Plt Count MPV Immature Gran % (Auto) Neut % (Auto) Lymph % (Auto) Pine % (Auto) Eos % (Auto) Baso % (Auto) Absolute Neuts (auto) Absolute Lymphs (auto) Total Counted PT INR APTT Sodium Cancelled 140 Potassium Cancelled 3.3 L Chloride Cancelled 105 Carbon Dioxide Cancelled 28.0 Anion Gap Cancelled 7 BUN Cancelled 9 Creatinine Cancelled 0.91 Estim Creat Clear Calc Cancelled 110.30 Est GFR (MDRD) Af Amer Cancelled 118 Est GFR (MDRD) Non-Af Cancelled 97 BUN/Creatinine Ratio Cancelled 9.9 L Glucose Cancelled 156 H Calcium Cancelled 8.2 L Phosphorus Cancelled 2.8 Magnesium Cancelled 1.9 Total Bilirubin AST ALT Alkaline Phosphatase Total Creatine Kinase 159 Total Protein Albumin Globulin Albumin/Globulin Ratio Aldolase Urine Potassium CSF Albumin Serum IgG CSF IgG/Albumin CSF Albumin Index CSF IgG Index CSF IgG Local Synthesis Culture Method 11/22/18 11/22/18 11/22/18 03:52 10:00 10:00 WBC RBC Hgb Hct MCV MCH MCHC RDW RDW Differential Plt Count MPV Immature Gran % (Auto) Neut % (Auto) Lymph % (Auto) Pine % (Auto) Eos % (Auto) Baso % (Auto) Absolute Neuts (auto) Absolute Lymphs (auto) Total Counted PT INR APTT Sodium 140 Potassium 3.8 Chloride 106 Carbon Dioxide 26.0 Anion Gap 8 BUN 8 Creatinine 0.88 Estim Creat Clear Calc 114.06 Est GFR (MDRD) Af Amer 122 Est GFR (MDRD) Non-Af 101 BUN/Creatinine Ratio 9.1 L Glucose 150 H Calcium 8.2 L Phosphorus Magnesium Total Bilirubin AST ALT Alkaline Phosphatase Total Creatine Kinase Total Protein Albumin Globulin Albumin/Globulin Ratio Aldolase Pending Urine Potassium 24.0 CSF Albumin Serum IgG CSF IgG/Albumin CSF Albumin Index CSF IgG Index CSF IgG Local Synthesis Culture Method 11/22/18 10:00 WBC RBC Hgb Hct MCV MCH MCHC RDW RDW Differential Plt Count MPV Immature Gran % (Auto) Neut % (Auto) Lymph % (Auto) Pine % (Auto) Eos % (Auto) Baso % (Auto) Absolute Neuts (auto) Absolute Lymphs (auto) Total Counted PT INR APTT Sodium Potassium Chloride Carbon Dioxide Anion Gap BUN Creatinine Estim Creat Clear Calc Est GFR (MDRD) Af Amer Est GFR (MDRD) Non-Af BUN/Creatinine Ratio Glucose Calcium Phosphorus Magnesium Total Bilirubin AST ALT Alkaline Phosphatase Total Creatine Kinase Total Protein Albumin Pending Globulin Albumin/Globulin Ratio Aldolase Urine Potassium CSF Albumin Pending Serum IgG Pending CSF IgG/Albumin Pending CSF Albumin Index Pending CSF IgG Index Pending CSF IgG Local Synthesis Pending Culture Method Pending Discharge Diet: No Restrictions Discharge Activity: - - Activity Per [facility] Home Medications: Medications to take at Discharge Amlodipine Besylate 10 mg PO DAILY 11/21/18 Duloxetine Hcl [Cymbalta] 60 mg PO DAILY 11/21/18 Naltrexone Microspheres [Vivitrol] 380 mg IM QMONTH 11/21/18 Propranolol HCl 10 mg PO DAILY 11/21/18 Ranitidine [Zantac] 150 mg PO DAILY 11/21/18 busPIRone [Buspar] 15 mg PO TID PRN 11/21/18 hydrOXYzine pamoate capsule [Vistaril pamoate capsule] 25 mg PO QHS PRN PRN 12/28/18 Albuterol Inhaler [Ventolin Hfa] 2 INHALATION PRN PRN 11/22/18 Clonidine HCl [Catapres] 0.2 mg PO DAILY PRN 11/22/18 Primary Care Physician: Farrah Elder NP-C [Primary Care Provider] - Within 1 Week Disposition: Acute care Hospital Minutes spent on discharge:: 60 Patient Condition:: Stable Medical Necessity - Tobacco Use Smoking Status: Current every day smoker Tobacco Use: Cigarettes Meaningful Use Info Meaningful Use Diagnoses (Choose all that apply): None applicable Code Visit Inpatient E&M: 04949 Disch Hosp
[2018-11-22] MEDS: LORazepam 1 MG Tablet PO (11:17)
--- NOTE | 2018-11-22 11:17 | NURSING ---
Spoke with Goldie mAaro regarding 's concern of patient receiving Ativan due to his history of drug/alcohol abuse and medication he is taking to help with same. Per Dr. Amaro, patient may have his Ativan.
--- NOTE | 2018-11-22 11:50 | NURSING ---
Patient asking to get up and walk with therapy. RN called and spoke with PT. Per their suggestion, patient was unable to stand well this am and was buckling his legs. He would be okay to stand with a walker and assist from staff only. RN in to speak with patient regarding same. Patient's was walking patient in his room using the walker and gait belt. Gait was slow but steady. Patient and his were reminded that staff need to help patient for his safety. Patient's became upset again. Attempted to explain patient safety to with minimal value.
--- NOTE | 2018-11-22 12:30 | NURSING ---
Called and spoke with Laurence from [facility] transfer line. She states she is a nurse and can take report. Updated her on patient receiving po Oxyir and Ativan prior to discharge. Also made Laurence aware of patient's drug and alcohol abuse history and difficult family dynamic due to same with his . Patient was having difficulty with standing/walking earlier today per therapy report, but was noted up ambulating in his room with the help of his prior to discharge. He was using a walker and a gait belt. Gait was slow and steady.
--- NOTE | 2018-11-22 12:42 | NURSING ---
Spoke with Laurence again and made her aware that patient has his nicotine patch on his right deltoid and that he has a 20G IV RFA.
--- NOTE | 2018-11-24 22:17 | ED.RN ---
patients called in and asked him why he received narcan while he was here. At this time I was unable to find any charting that supports patient received any narcan on this admission. patients made aware.
[2018-11-25 13:22] LABS: Aldolase 4.9 U/L (3.3-10.3)
== END 2018-11-22 12:30 | disposition short-term general hospital (02) | DRG 948 ==
LOC: ED 15:16 → PCU 11-22 00:09
PROVIDERS: Admitting Provider Hospitalist; Emergency Provider Emergency Medicine; Family Provider Nurse Practitioner Adult Health; PCP Nurse Practitioner Adult Health
DX: R53.1 Weakness (principal); I10 Essential (primary) hypertension; E87.6 Hypokalemia; F17.210 Nicotine dependence, cigarettes, uncomplicated; K21.9 Gastro-esophageal reflux disease without esophagitis
CPT/HCPCS: 36415; 70553; 72146; 72148; 72156; 80048; 80053; 82085; 82550; 83735; 84100; 84133; 85025; 85610; 85730; 94150; 95831; 97162; 97166; 97802; 99251; 99283; 99406; A9585; A4216; G0463